=== PATIENT | male | born 1990 | race Two or more races ===

== ENCOUNTER 2017-06-08 20:24 | Emergency (ER) | payer OTHER ==
[~2017-06-08] VITALS: Ht 167.6 cm; Wt 59.0 kg
[2017-06-08] MEDS: ACETAMINOPHEN ES 500 MG TABLET PO ONE (21:32)
[2017-06-08] MEDS: IBUPROFEN 600 MG TABLET PO ONE (21:32)
[2017-06-08] MEDS: NEOMY/BACITRA/POLYMYXIN B OINT UD PACKET TP ONE (21:32)
--- NOTE | 2017-06-08 21:38 | NUR ---
Patient discharged to home in stable conditon. Written and verbal after care instructions given. Patient verbalizes understanding of instructions.
[2017-06-08] MEDS ORDERED: ACETAMINOPHEN ES 500 MG TABLET ONE (21:49)
[2017-06-08] MEDS ORDERED: IBUPROFEN 600 MG TABLET ONE (21:49)
[2017-06-08] MEDS ORDERED: NEOMY/BACITRA/POLYMYXIN B OINT UD PACKET TP ONE (21:49)
== END 2017-06-08 21:39 | disposition home or self-care (01) ==
LOC: ER 20:28
DX: T23.222A Burn of second degree of single left finger (nail) except thumb, initial encounter (principal); X10.2XXA Contact with fats and cooking oils, initial encounter; Y93.G3 Activity, cooking and baking; Y92.89 Other specified places as the place of occurrence of the external cause; Y99.8 Other external cause status
CPT/HCPCS: 16020; A4663; A9150